=== PATIENT | male | born 1945 | race Caucasian/White ===

== ENCOUNTER → 2019-08-26 | Outpatient (CLI) | payer MEDICARE ==
--- NOTE | 2019-08-26 12:24 | Diagnostic Imaging Report ---
EXAMINATION: CHEST 2 VIEWS INDICATION: Cough COMPARISON: None FINDINGS: LINES/TUBES:None LUNGS:The lungs are mildly hyperinflated. No focal consolidation. There is perihilar fullness and indistinctness of the pulmonary vasculature. PLEURA:No pleural effusion or pneumothorax. MEDIASTINUM:Cardiomegaly. Atherosclerotic calcifications of the thoracic aorta. BONES/SOFT TISSUES:No acute osseous injury. ABDOMEN:No free air under the diaphragm. IMPRESSION: Cardiomegaly and mild pulmonary interstitial edema. Signed by: Bj Story MD on 08/26/2019 12:21 PM
== END ==
LOC: RAD 10:54
PROVIDERS: ATTEND Internal Medicine
DX: R05 Cough (principal); I48.91 Unspecified atrial fibrillation
CPT/HCPCS: 71046; 93005

== ENCOUNTER → 2019-09-02 | Outpatient (CLI) | payer MEDICARE | LOC: RAD 09:21 | PROVIDERS: ATTEND Internal Medicine | DX: I48.91 Unspecified atrial fibrillation (principal); R05 Cough | CPT/HCPCS: 93306 ==

== ENCOUNTER → 2019-09-24 | Outpatient (CLI) | payer MEDICARE ==
[~2019-09-24] MED LIST: REGADENOSON 0.4 MG/5 ML SYR IV ONE
--- NOTE | 2019-09-24 22:15 | Myoview Stress Test ---
DATE OF STUDY: 09/24/2019 07:39:00 Stress Test - Treadmill ONLY INDICATION: Systolic heart failure. PROCEDURE IN DETAIL: Pharmacologic stress testing was performed with regadenoson per protocol. The heart rate was 59 beats per minute at rest and increased to beats per minute. During the regadenoson infusion, the resting blood pressure was 127/88 mmHg and decreased to 90/67 mmHg, which is a normal response. The resting electrocardiogram demonstrated normal sinus rhythm with PVCs. There were no ST-segment changes suggestive of myocardial ischemia. Myocardial perfusion imaging was performed at rest following the injection of 11 mCi of tetrofosmin. At peak pharmacologic effect, the patient was injected with 32 mmHg of tetrofosmin. Gated post-stress tomographic imaging was performed. FINDINGS: The overall quality of study is fair. Left ventricular cavity is noted to be enlarged on the rest and stress studies. SPECT images demonstrate a small mild perfusion defect in the anterior wall that is worse on stress. In addition, there is a small mild perfusion defect in the lateral wall on stress that is not present on rest. Gated SPECT imaging reveals global hypokinesis. The left ejection fraction was calculated to be 25%. IMPRESSION: Myocardial perfusion imaging is abnormal. There is a small mild area of ischemia in the anterior wall as well as a small mild area of ischemia in the lateral wall. Overall, left ventricular systolic function was abnormal without regional wall motion abnormalities. Stacey Zhu MD ABS/MODL /[id number]
== END ==
LOC: NM 07:26
PROVIDERS: ATTEND Internal Medicine
DX: I50.22 Chronic systolic (congestive) heart failure (principal)
CPT/HCPCS: 78452; 93017; A9502; J2785

== ENCOUNTER → 2020-02-03 | Outpatient (CLI) | payer MEDICARE | LOC: RAD 09:27 | PROVIDERS: ATTEND Internal Medicine | DX: I50.9 Heart failure, unspecified (principal) | CPT/HCPCS: 93306 ==